=== PATIENT | female | born 1965 | race Caucasian/White ===

== ENCOUNTER 2018-04-19 12:33 | Emergency (ER) | payer BC ==
[2018-04-19 12:49] VITALS: BP 131/89
[2018-04-19] MEDS ORDERED: Acetaminophen/oxyCODONE 325-5 MG Tab PO ONE (13:39)
--- NOTE | 2018-04-19 13:50 | EDM.PDOC ---
ED HPI GENERAL MEDICAL PROBLEM - General Chief Complaint: Lower Extremity Injury/Pain Stated Complaint: LEFT FOOT PAIN Time Seen by Provider: 04/19/18 13:27 Source of Information: Reports: Patient History Limitations: Reports: No Limitations - History of Present Illness INITIAL COMMENTS - FREE TEXT/NARRATIVE: 52-year-old female presents for evaluation and treatment of pain and swelling to the left foot. Reports the pain is primarily in the ball of her left foot. Has been going on for several weeks to months and is steadily worsening. She states that she is unable to walk due to the pain. Reports that by night the ball of her foot is red and swollen. She contacted her primary care provider today who instructed her follow with orthopedics. She does have an appointment to see orthopedics on May 03 but states that the pain is getting to intense and she needs to be seen today. Patient reports about 2 years ago she was in [place] when she stepped on an approximately 4 inch long nail. It went through her flip-flop and into the ball of her foot. She was never seen. Questions if there was some retained wood or metal in this area. 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 - Past Surgical History Musculoskeletal Surgical History: Reports: Shoulder Surgery, Other (See Below) Social & Family History - Tobacco Use Smoking Status *Q: Current Every Day Smoker Years of Tobacco use: 20 Packs/Tins Daily: 0.2 - Caffeine Use Caffeine Use: Reports: Coffee - Recreational Drug Use Recreational Drug Use: No Review of Systems - Review of Systems Review Of Systems: See Below Musculoskeletal: Reports: Foot Pain (left), Joint Swelling (left foot) Skin: Reports: Wound (scar from previous puncture wound to the foot 2 years ago) ED EXAM, GENERAL - Physical Exam Exam: See Below Exam Limited By: No Limitations General Appearance: Alert, WD/WN, No Apparent Distress Respiratory/Chest: No Respiratory Distress Cardiovascular: Normal Peripheral Pulses Peripheral Pulses: 3+: Posterior Tibial (L), Posterior Tibial (R), Dorsalis Pedis (L), Dorsalis Pedis (R) Extremities: Joint Swelling (left ball of foot, no surrounding erythema). No: Increased Warmth Neurological: Alert, Oriented Psychiatric: Normal Affect, Normal Mood Skin Exam: Warm, Dry, Normal Color, Other (scar from previous puncture wound to the foot 2 years ago, approximately 1cm darker area to theleft ball of the foot) Course - Vital Signs Last Recorded V/S: Last Vital Signs Temp 99.5 F 04/19/18 12:44 Pulse 73 04/19/18 12:44 Resp 18 04/19/18 12:44 BP 131/89 04/19/18 12:44 Pulse Ox 100 04/19/18 12:44 - Orders/Labs/Meds Meds: Medications Discontinued Medications Generic Name Dose Route Start Last Admin Trade Name Eduardo PRN Reason Stop Dose Admin Oxycodone/Acetaminophen 1 tab 04/19/18 13:39 04/19/18 13:45 Percocet 325-5 Mg PO 04/19/18 13:40 1 tab ONETIME ONE Administration - Radiology Interpretation Free Text/Narrative:: Left foot: Four views of the left foot were obtained. Comparison: No prior foot exam. Joint spaces are preserved. No fracture, dislocation or other bony abnormality is identified. 1. No abnormality is appreciated on left foot exam. Left foot ultrasound: Multiple real-time images were obtained of the left plantar region. Small amount of fluid is seen within the plantar soft tissues which is nonspecific. No shadowing foreign body is identified. No additional abnormality is noted. Impression: 1. Small amount of nonspecific fluid within the plantar soft tissues of the left foot. 2. No other ultrasound abnormality is seen. - Re-Assessments/Exams Free Text/Narrative Re-Assessment/Exam: 04/19/18 14:23 Reviewed the xray with the patient. Will obtain an ultrasound of the foot to better eval for foreign body. 04/19/18 15:34 I reviewed the ultrasound results with the patient. Given that we do not see any foreign material in her x-ray or ultrasound I'll have her follow up with podiatry. She may require an MRI to further evaluate. She is agreeable to this plan. I will put her symptoms and in for pain in the meantime. Discharge instructions as documented. Departure - Departure Time of Disposition: 15:35 Disposition: Home, Self-Care 01 Condition: Fair Clinical Impression: Foot swelling - Discharge Information Prescriptions: Acetaminophen/oxyCODONE [Percocet 325-5 MG] 1 each PO Q4HR PRN #20 tab PRN Reason: Pain Instructions: Foot Pain Referrals: Katia Landon NP [Primary Care Provider] - Doug Huffman II, DPM [Physician] - Forms: ED Department Discharge Additional Instructions: You were given medication in the ER that can affect your ability to drive and operate machinery. Do not drive or operate machinery within 12 hours of taking prescription narcotic pain medication. Follow-up with podiatry this week. Recommend Dr. Joyce at the [facility]. Call [phone] to schedule with him. Continues to crutches as needed for discomfort. Elevate the Ice the foot. Use [id number] ibuprofen as needed for pain relief. For pain not relieved by ibuprofen, take percocet 1-2 tabs PO every 4-6 hours prn pain. Percocet is habit forming, take as few of theses as needed to control your pain. Do not drive or operate machinery within 12 hours of taking percocet. Please return to the to the ER if your symptoms change or worsen.
--- NOTE | 2018-04-19 14:25 | CR ---
Left foot: Four views of the left foot were obtained. Comparison: No prior foot exam. Joint spaces are preserved. No fracture, dislocation or other bony abnormality is identified. Impression: 1. No abnormality is appreciated on left foot exam. Diagnostic code #1
--- NOTE | 2018-04-19 15:13 | US ---
Left foot ultrasound: Multiple real-time images were obtained of the left plantar region. Small amount of fluid is seen within the plantar soft tissues which is nonspecific. No shadowing foreign body is identified. No additional abnormality is noted. Impression: 1. Small amount of nonspecific fluid within the plantar soft tissues of the left foot. 2. No other ultrasound abnormality is seen. Diagnostic code #3
== END 2018-04-19 15:45 | disposition home or self-care (01) ==
LOC: JD.ED 12:33
DX: R22.42 Localized swelling, mass and lump, left lower limb (principal); F17.210 Nicotine dependence, cigarettes, uncomplicated; Z88.8 Allergy status to other drugs, medicaments and biological substances; Z79.899 Other long term (current) drug therapy
CPT/HCPCS: 73630; 76881; 99284; A9270; 99283

== ENCOUNTER 2020-05-19 14:55 | Emergency (ER) | payer BC ==
[2020-05-19 15:10] VITALS: BP 131/80; PULSE 82
--- NOTE | 2020-05-19 15:34 | EDM.PDOC ---
ED HPI GENERAL MEDICAL PROBLEM - General Chief Complaint: Lower Extremity Injury/Pain Stated Complaint: RT FOOT INJURY Time Seen by Provider: 05/19/20 15:36 Source of Information: Reports: Patient History Limitations: Reports: No Limitations - History of Present Illness INITIAL COMMENTS - FREE TEXT/NARRATIVE: The patient is an unfortunate 54-year-old female who presents emergency department a day with complaint of right small toe pain. Patient reports she was in her normal state of health approximately 2 days ago when she slipped and fell and hit her foot on a metal object which caused her toe to bend back since that time she is having pain and swelling ever since. Patient reports pain is worse with ambulation or palpation improved with rest but does not alleviate neurovascular is intact Right Feet Pain Score (Numeric/FACES): 8 - Related Data Allergies Allergy/AdvReac Type Severity Reaction Status Date / Time iodine Allergy Severe Anaphylactic Verified 05/19/20 15:09 Shock Home Meds: Home Meds EPINEPHrine [Epipen] 1 dose IM ONETIME PRN 10/11/18 [History] Multivitamin [Daily Multiple Vitamin] 1 tab PO DAILY 10/11/18 [History] SUMAtriptan succinate [Imitrex] 50 mg PO ASDIRECTED PRN 10/11/18 [History] Zolpidem Tartrate [Zolpidem Tartrate ER] 12.5 mg PO BEDTIME PRN 10/11/18 [History] Acetaminophen/Codeine [Tylenol with Codeine No.3 300MG/30MG] 1 tab PO Q4H PRN #12 tab 05/19/20 [Rx] Past Medical History HEENT History: Reports: None Cardiovascular History: Reports: Arrhythmia, Other (See Below) Other Cardiovascular History: Non sustained v-tach Respiratory History: Reports: Bronchitis, Recurrent Musculoskeletal History: Reports: Arthritis Other Musculoskeletal History: ac joint arthritis, rotator cuff tear, left foot pain, left shoulder pain, neck pain, left shoulder impingment, left wrist fracture Neurological History: Reports: Migraines Psychiatric History: Reports: Other (See Below) Other Psychiatric History: insomnia Endocrine/Metabolic History: Reports: None Hematologic History: Reports: None Immunologic History: Reports: None Other Oncologic History: 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, endometrial cancer Dermatologic History: Reports: Other (See Below) Other Dermatologic History: foot callus, skin neoplasm, soft tumor excision from hand - Past Surgical History HEENT Surgical History: Reports: None Cardiovascular Surgical History: Reports: None Respiratory Surgical History: Reports: None GI Surgical History: Reports: Appendectomy, Cholecystectomy, EGD Female Surgical History: Reports: Section, Hysterectomy, Oophorectomy, Tubal Ligation Endocrine Surgical History: Reports: None Neurological Surgical History: Reports: None Musculoskeletal Surgical History: Reports: Shoulder Surgery, Other (See Below) Other Musculoskeletal Surgeries/Procedures:: knee surgery, neck surgery, nerve graft rotator cuff repair Oncologic Surgical History: Reports: None Social & Family History - Tobacco Use Smoking Status *Q: Current Every Day Smoker Years of Tobacco use: 15 Packs/Tins Daily: 0.5 - Caffeine Use Caffeine Use: Reports: Coffee - Recreational Drug Use Recreational Drug Use: No Review of Systems - Review of Systems Review Of Systems: See Below Constitutional: Denies: Chills, Fever Musculoskeletal: Reports: Foot Pain, Joint Pain ED EXAM, GENERAL - Physical Exam Exam: See Below Exam Limited By: No Limitations General Appearance: Alert, WD/WN, Mild Distress Ears: Normal External Exam, Normal Canal, Hearing Grossly Normal, Normal TMs Throat/Mouth: Normal Inspection, Normal Lips, Normal Teeth, Normal Gums, Normal Oropharynx, Normal Voice, No Airway Compromise Head: Atraumatic, Normocephalic Neck: Normal Inspection, Supple, Non-Tender, Full Range of Motion Respiratory/Chest: No Respiratory Distress, Lungs Clear, Normal Breath Sounds, No Accessory Muscle Use, Chest Non-Tender Cardiovascular: Normal Peripheral Pulses, Regular Rate, Rhythm, No Edema, No Gallop, No JVD, No Murmur, No Rub GI/Abdominal: Normal Bowel Sounds, Soft, Non-Tender, No Organomegaly, No Distention, No Abnormal Bruit, No Mass Back Exam: Normal Inspection, Full Range of Motion, NT Extremities: Other (Pain swelling tenderness ecchymosis to her right fifth toe she also has an abrasion on the distal phalanx of her right fourth toe still neurovascular is intact) Neurological: Alert Skin Exam: Warm, Dry Course - Vital Signs Text/Narrative:: Right foot x-ray interpreted by me proximal phalanx fx 5th nondisplaced Last Recorded V/S: Last Vital Signs Temp 98.2 F 05/19/20 15:03 Pulse 82 05/19/20 15:03 Resp 16 05/19/20 15:03 BP 131/80 05/19/20 15:03 Pulse Ox 99 05/19/20 15:03 - Orders/Labs/Meds Orders: Active Orders 24 hr Category Date Time Status Foot Comp Min 3V Rt [CR] Stat Exams 05/19/20 15:12 Taken Departure - Departure Time of Disposition: 15:38 Disposition: Home, Self-Care 01 Condition: Good Clinical Impression: Fracture of fifth toe, right, closed Qualifiers: Encounter type: initial encounter Qualified Code(s): S92.501A - Displaced unspecified fracture of right lesser toe(s), initial encounter for closed fracture - Discharge Information *PRESCRIPTION DRUG MONITORING PROGRAM REVIEWED*: Yes *COPY OF PRESCRIPTION DRUG MONITORING REPORT IN PATIENT JUAN A: No Prescriptions: Acetaminophen/Codeine [Tylenol with Codeine No.3 300MG/30MG] 1 tab PO Q4H PRN #12 tab PRN Reason: Pain Referrals: Katia Landon NP [Primary Care Provider] - Codey Nicholson MD [Physician] - Forms: ED Department Discharge Additional Instructions: Home, rest, ice, elevate, wear rose mary tape, return as needed for worsening condition Sepsis Event Note (ED) - Evaluation Sepsis Screening Result: No Definite Risk - Focused Exam Vital Signs: Vital Signs Temp Pulse Resp BP Pulse Ox 05/19/20 15:03 98.2 F 82 16 131/80 99 - My Orders Last 24 Hours: My Active Orders 05/19/20 15:12 Foot Comp Min 3V Rt [CR] Stat - Assessment/Plan Last 24 Hours: My Active Orders 05/19/20 15:12 Foot Comp Min 3V Rt [CR] Stat
--- NOTE | 2020-05-19 15:50 | CR ---
Right foot: 3 views of the right foot were obtained. Comparison: No prior foot study. Fracture is identified involving the proximal shaft of the proximal phalanx of the right 5th toe. Alignment remains anatomic. No additional fracture or other bony abnormality is seen. Soft tissue swelling is seen around the 5th toe. Impression: 1. 5th toe fracture. Soft tissue swelling. Diagnostic code #3 This report was dictated in MDT
== END 2020-05-19 15:57 | disposition home or self-care (01) ==
LOC: JD.ED 14:55
DX: S92.511A Displaced fracture of proximal phalanx of right lesser toe(s), initial encounter for closed fracture (principal); G43.909 Migraine, unspecified, not intractable, without status migrainosus; M19.90 Unspecified osteoarthritis, unspecified site; F17.210 Nicotine dependence, cigarettes, uncomplicated; Z88.8 Allergy status to other drugs, medicaments and biological substances; W01.198A Fall on same level from slipping, tripping and stumbling with subsequent striking against other object, initial encounter
CPT/HCPCS: 73630-26-RT; 73630-RT; 99283; 99283-25

== ENCOUNTER 2020-08-19 10:45 | Day surgery (SDC) | payer BC ==
[~2020-08-19 10:45] MED LIST: Lidocaine 1%/Sod Bicarbonate in NS 8.4% 1 ML Syringe IDERM PRN; Sodium Chloride 0.9% 10 ML Syringe FLUSH PRN
[2020-08-19] MEDS: Lactated Ringers 1,000 ML IV SCH ×2 (11:05→12:13)
--- NOTE | 2020-08-19 11:14 | PCM.PREANE ---
Preanesthetic Assessment - Procedure Proposed Procedure: colonoscopy - Anesthesia/Transfusion/Family Hx Anesthesia History: Prior Anesthesia Without Reaction Family History of Anesthesia Reaction: No Transfusion History: No Prior Transfusion(s) Intubation History: Unknown - Review of Systems General: No Symptoms Pulmonary: No Symptoms Cardiovascular: No Symptoms Gastrointestinal: No Symptoms Neurological: Headache (migraines - takes meds PRN, not currently in pain ), Numbness (right forearm from skin graft ) Other: Reports: None - Physical Assessment Vital Signs: Last Vital Signs Temp 36.5 C 08/19/20 10:40 Pulse 102 H 08/19/20 10:40 Resp 18 08/19/20 10:40 BP 117/91 H 08/19/20 10:40 Pulse Ox 99 08/19/20 10:40 Height: 1.7 m Weight: 64.41 kg ASA Class: 2 Mental Status: Alert & Oriented x3 Dentition: Reports: Normal Dentition Thyro-Mental Finger Breadths: 3 Mouth Opening Finger Breadths: 5 ROM/Head Extension: Full Lungs: Clear to Auscultation, Normal Respiratory Effort Cardiovascular: Regular Rate, Regular Rhythm - Allergies Allergies/Adverse Reactions: Allergies Allergy/AdvReac Type Severity Reaction Status Date / Time iodine Allergy Severe Anaphylactic Verified 08/18/20 15:27 Shock shellfish Allergy Anaphylactic Uncoded 08/18/20 15:27 Shock - Blood Blood Available: No - Anesthesia Plan Pre-Op Medication Ordered: None, Anxiolytic - Acknowledgements Anesthesia Type Planned: MAC Pt an Appropriate Candidate for the Planned Anesthesia: Yes Alternatives and Risks of Anesthesia Discussed w Pt/Guardian: Yes Pt/Guardian Understands and Agrees with Anesthesia Plan: Yes PreAnesthesia Questionnaire HEENT History: Reports: None Cardiovascular History: Reports: Arrhythmia, Other (See Below) Other Cardiovascular History: Non sustained v-tach Respiratory History: Reports: Bronchitis, Recurrent Other Respiratory History: Patient denies bronchitis Other Genitourinary History: kidney stones Other OB/BYN History: endometrial cancer Musculoskeletal History: Reports: Arthritis Other Musculoskeletal History: ac joint arthritis, rotator cuff tear, left foot pain, left shoulder pain, neck pain, left shoulder impingment, left wrist fracture Neurological History: Reports: Migraines Psychiatric History: Reports: Other (See Below) Other Psychiatric History: insomnia Endocrine/Metabolic History: Reports: None Hematologic History: Reports: None Immunologic History: Reports: None Other Oncologic History: Giant cell carcinoma of benign nature. 2002 right hand, endometrial cancer Dermatologic History: Reports: Other (See Below) Other Dermatologic History: foot callus, skin neoplasm, soft tumor excision from hand - Past Surgical History HEENT Surgical History: Reports: None Cardiovascular Surgical History: Reports: None Other Cardiovascular Surgeries/Procedures: vtach Respiratory Surgical History: Reports: None GI Surgical History: Reports: Appendectomy, Cholecystectomy, EGD Female Surgical History: Reports: Section, Hysterectomy, Oophorectomy, Tubal Ligation Male Surgical History: Reports: None Endocrine Surgical History: Reports: None Neurological Surgical History: Reports: None Musculoskeletal Surgical History: Reports: Shoulder Surgery, Other (See Below) Other Musculoskeletal Surgeries/Procedures:: knee surgery, neck surgery, nerve graft rotator cuff repair Oncologic Surgical History: Reports: None - SUBSTANCE USE Smoking Status *Q: Former Smoker Tobacco Use Within Last Twelve Months: Cigarettes Days Per Week of Alcohol Use: 3 Recreational Drug Use History: No - HOME MEDS Home Medications: Home Meds EPINEPHrine [Epipen] 1 dose IM ONETIME PRN 10/11/18 [History] Multivitamin [Daily Multiple Vitamin] 1 tab PO DAILY 10/11/18 [History] SUMAtriptan succinate [Imitrex] 50 mg PO ASDIRECTED PRN 10/11/18 [History] Acetaminophen/Codeine [Tylenol with Codeine No.3 300MG/30MG] 1 tab PO Q4H PRN #12 tab 05/19/20 [Rx] Cholecalciferol (Vitamin D3) [Vitamin D3] 2,000 unit PO DAILY 08/18/20 [History] Nicotine [Nicotine Patch] 1 each TD ASDIRECTED 08/18/20 [History] Soy Isofl/Blk Coh/Gr Tea/Yerba [[employer] Caplet] 1 tab PO DAILY 08/18/20 [History] estradioL [Estradiol] 2 mg PO DAILY 08/18/20 [History] Acetaminophen [Tylenol Extra Strength] 2 tab PO ASDIRECTED PRN 08/19/20 [History] - CURRENT (IN HOUSE) MEDS Current Meds: Current Medications Lactated Ringer's (Ringers, Lactated) 1,000 mls @ 125 mls/hr IV ASDIRECTED LUIS Stop: 08/19/20 23:00 Last Admin: 08/19/20 11:05 Dose: 125 mls/hr Documented by: Lidocaine/Sodium Bicarbonate (Buffered Lidocaine 1% In Ns 8.4%) 0.25 ml IDERM ONETIME PRN PRN Reason: Prior to IV Start Stop: 08/19/20 18:00 Last Admin: 08/19/20 11:07 Dose: 0.25 ml Documented by: Sodium Chloride (Saline Flush) 10 ml FLUSH ASDIRECTED PRN PRN Reason: Keep Vein Open Stop: 08/19/20 18:00
[2020-08-19] MEDS ORDERED: LORazepam 0.5 MG Tab PO ONE (12:00)
[2020-08-19] MEDS ORDERED: Propofol 200 MG/20 ML SDV ONE ×4 (12:10→13:20)
[2020-08-19] MEDS ORDERED: Lidocaine 1% 4 ML ONE (12:10)
[2020-08-19] MEDS ORDERED: fentaNYL 100 MCG/2 ML SDV ONE (13:00)
--- NOTE | 2020-08-19 13:37 | PCM.PRNOTE ---
- Free Text/Narrative Note: Date: 08/19/2020 Procedure: initial screening colonoscopy Endoscopist: Omega Orozco MD Findings: Cecum reached with colonoscope. Poor prep. Single small rectal polyp identified. Significant sigmoid diverticulosis. Detailed Report: The patient was taken to the endoscopy suite and placed in left lateral decubitu s position. Time out was performed and monitored anesthesia care was initiated. Visual inspection of the anus revealed small external hemorrhoidal skin tag. Digital rectal exam was unremarkable. The lubricated colonoscope was then inserted and advanced all the way to the cecum. The colon was redundant, and it was moderately difficult to reach the cecum, with need for abdominal maneuvers and eventually placement of the patient in supine position. The ileocecal valve was visualized. Prior appendectomy was apparent. The prep was poor, with thick, adherent yellow residue throughout. On slow withdrawal of the scope, mucosal surfaces were carefully inspected. Only one small rectal polyp was identified and removed with forceps. There was significant sigmoid diverticulosis. On retroflexion within the rectum no abnormality was noted. Air was suctioned prior to removal of the scope. The patient tolerated the procedure well.
--- NOTE | 2020-08-19 13:46 | PCM48HPAN ---
Post Anesthesia Note - EVALUATION WITHIN 48HRS OF ANESTHETIC Vital Signs in Normal Range: Yes Patient Participated in Evaluation: Yes Respiratory Function Stable: Yes Airway Patent: Yes Cardiovascular Function Stable: Yes Hydration Status Stable: Yes Pain Control Satisfactory: Yes Nausea and Vomiting Control Satisfactory: Yes Mental Status Recovered: Yes Vital Signs: Last Vital Signs Temp 97.7 F 08/19/20 10:40 Pulse 102 H 08/19/20 10:40 Resp 18 08/19/20 10:40 BP 117/91 H 08/19/20 10:40 Pulse Ox 99 08/19/20 10:40 109/67 95% 93 12 97.6f
[2020-08-19 14:39] VITALS: BP 121/85; PULSE 77
== END 2020-08-19 14:40 | disposition home or self-care (01) ==
LOC: JD.SDS 10:45
PROVIDERS: ATTEND Surgery
DX: Z12.11 Encounter for screening for malignant neoplasm of colon (principal); K62.1 Rectal polyp; K57.30 Diverticulosis of large intestine without perforation or abscess without bleeding; E78.5 Hyperlipidemia, unspecified; F17.210 Nicotine dependence, cigarettes, uncomplicated; Z91.013 Allergy to seafood; Z91.041 Radiographic dye allergy status; Z88.8 Allergy status to other drugs, medicaments and biological substances; Z98.890 Other specified postprocedural states; Z79.899 Other long term (current) drug therapy
CPT/HCPCS: 45380; A9270; J2001; J2704; J3010; J7120; 00812